=== PATIENT | female | born 1995 | race Two or more races ===

== ENCOUNTER 2022-12-16 18:48 | Emergency (ER) | payer SELFPAY ==
[~2022-12-16] VITALS: Ht 162.6 cm; Wt 56.0 kg
[2022-12-16] MEDS ORDERED: ACETAMINOPHEN 325 MG TAB PO ONE (20:15)
[2022-12-16] MEDS ORDERED: MUPI2OIN2 EX (21:21)
[2022-12-16] MEDS ORDERED: IBUP-1453 PO (21:21)
[2022-12-16] MEDS ORDERED: DOXY-286 PO (21:21)
[2022-12-16] MEDS ORDERED: HYDROcodone-ACET 5/325MG TAB PO ONE (21:45)
[2022-12-16 21:50] VITALS: BP 153/105; PULSE 74; RESP 18; TEMP 98.7; O2SAT 97
== END 2022-12-16 22:08 | disposition home or self-care (01) ==
LOC: ER 18:48
DX: S01.01XA Laceration without foreign body of scalp, initial encounter (principal); S13.9XXA Sprain of joints and ligaments of unspecified parts of neck, initial encounter; S09.90XA Unspecified injury of head, initial encounter; W18.09XA Striking against other object with subsequent fall, initial encounter; Y93.52 Activity, horseback riding; Y92.89 Other specified places as the place of occurrence of the external cause; Y99.8 Other external cause status
CPT/HCPCS: 12002; 70450; 72125